=== PATIENT | female | born 1995 | race African-American/Black ===

== ENCOUNTER 2020-11-25 20:33 | Emergency (ER) | payer OTHER, SELFPAY ==
[2020-11-25 20:47] VITALS: BP 121/69; PULSE 81; RESP 18; TEMP 37.2; O2SAT 100
[2020-11-25] MEDS: ONDANSETRON 4 MG/2 ML INJ IV (22:29)
[2020-11-25] MEDS: SODIUM CHLORIDE 0.9% 1,000 ML 1000 ML IV (22:29)
[2020-11-25 22:44] LABS: Add Manual Diff / Slide Review NO; Basophils Absolute Auto 100 /uL (0-100); Basophils Percent Auto 0.4 % (0-2); Eosinophils Absolute Auto 100 /uL (0-450); Eosinophils Percent Auto 0.5 % (2-4); Hematocrit 33.7 % (36-46); Hemoglobin 10.5 g/dL (12.0-16.0); Lymphocytes Absolute Auto 3600 /uL (1100-4500); Lymphocytes Percent Auto 23.5 % (25-40); Mean Corpuscular HGB Conc 31.1 % (30-36); Mean Corpuscular Hemoglobin 22.9 PG (26-34); Mean Corpuscular Volume 73.4 fL (80-100); Monocytes Absolute Auto 900 /uL (0-900); Monocytes Percent Auto 6.1 % (3-14); Neutrophils Absolute Auto 10800 /uL (1500-7000); Neutrophils Percent Auto 69.5 % (50-75); Platelet Count 346 X10^3/uL (150-400); Red Blood Cell Count 4.59 X10^6/uL (4.0-5.2); Red Cell Distribution Width 16.3 % (11.6-14.8); White Blood Cell Count 15.5 X10^3/uL (4.5-11.0)
[2020-11-25 22:47] LABS: Alanine Aminotransferase 13 IU/L (<35); Albumin 3.9 g/dL (3.5-5.0); Albumin Globulin Ratio 1.2 (1.0-2.8); Alkaline Phosphatase 57 U/L (38-126); Aspartate Aminotransferase 19 IU/L (14-36); BUN Creatinine Ratio 14.3 (6-22); Bilirubin Total 0.2 mg/dL (0.2-1.3); Blood Urea Nitrogen 8 mg/dL (7-17); Calcium 8.5 mg/dL (8.4-10.2); Carbon Dioxide 24 mmol/L (22-32); Chloride 105 mmol/L (98-107); Estimated Glomerular Filt Rate > 60.0 mL/min (>60); Globulin 3.2 g/dL (1.7-4.1); Glucose 81 mg/dL (70-100); HEMOLYSIS 17 (0-50); Potassium 3.9 mmol/L (3.4-5.1); Sodium 135 mmol/L (137-145); Total Protein 7.1 g/dL (6.3-8.2)
[2020-11-25 22:53] LABS: Ketones (Beta-Hydroxybutyrate) < 0 mmol/L (<0.27)
[2020-11-25 23:40] VITALS: BP 134/76; PULSE 84; RESP 20; O2SAT 100
--- NOTE | 2020-11-26 02:38 | ED.NAVMDI ---
HPI - Nausea/Vomiting/Diarrhea General Chief complaint: Nausea/Vomiting/Diarrhea Stated complaint: 7 WKS NEEDS FLUIDS SENT BY DOCTOR Time Seen by Provider: 11/25/20 22:18 Source: patient Mode of arrival: Ambulatory History of Present Illness HPI Narrative: 25-year-old female nonsmoker without significant medical history is a at 7 weeks and presents with excessive N/V over the course of the past few days. She feels a bit parched and weak. She has had no fever or chills. She denies any pain. She has been taking Zofran at home which is not helping today. Her doctor sent her in for evaluation and stabilization of her condition. She denies any dysuria, frequency or urgency. She denies abdominal pain, constipation, diarrhea or vaginal bleeding, discharge or leakage of fluid. Related Data Previous Rx's Medication Instructions Recorded ondansetron 4 mg disintegrating 4 mg PO Q8H PRN #20 tab 11/20/20 tablet labetalol 100 mg tablet 100 mg PO BID #60 tab 11/22/20 Allergies Allergy/AdvReac Type Severity Reaction Status Date / Time No Known Drug Allergies Allergy Verified 11/25/20 20:49 Review of Systems Review of Systems Narrative: GENERAL: See HPI HEENT: Denies sinus pain, ear pain, sore throat, difficulty swallowing, dizziness. RESPIRATORY: Denies dyspnea, cough, wheezing, hemoptysis, sputum. CARDIOVASCULAR: Denies chest pain, palpitations, orthopnea, edema, GASTROINTESTINAL: See HPI : Denies dysuria, frequency, incontinence, hematuria, urinary retention. MUSCULOSKELETAL: denies weakness, joint pain, or bony pain SKIN: Denies rash, skin lesions, or other NEUROLOGIC: Denies weakness, headache, numbness, change in speech, confusion, seizures, incoordination. PSYCHIATRIC: No concerning psychosocial issues. 12 point review of systems is negative except for those stated above Exam Narrative Exam Narrative: GENERAL: [25] year old patient appears stated age. Well-developed patient, in mild distress. HEAD: Atraumatic. Normocephalic. EYES: Pupils equal round and reactive. Extraocular motions intact. No scleral icterus. No injection or drainage. ENT: Nose without bleeding, purulent drainage. Throat without erythema, tonsillar hypertrophy or exudate. Airway patent. NECK: Trachea midline. Non tender CARDIOVASCULAR: Regular rate and rhythm without murmurs, gallops, or rubs. RESPIRATORY: Clear to auscultation. Breath sounds equal bilaterally. No wheezes, rales, or rhonchi. GASTROINTESTINAL: Abdomen soft, non-tender, nondistended. EXTREMITIES: No edema or joint tenderness. BACK: Nontender without deformity or crepitance. No flank tenderness. NEURO: AOx3. SKIN: No rash or erythema of visible areas Initial Vital Signs Initial Vital Signs: Vital Signs Temperature 99.0 F 11/25/20 20:47 Pulse Rate 81 11/25/20 20:47 Respiratory Rate 18 11/25/20 20:47 Blood Pressure 121/69 11/25/20 20:47 Pulse Oximetry 100 11/25/20 20:47 Course Orders Ordered: ED Orders 11/25/20 22:27 Complete Blood Count AUTO DIFF Stat Comprehensive Metabolic Panel Stat Ketones (Beta-Hydroxybutyrate) Stat Discontinued Medications Sodium Chloride (Normal Saline 0.9%) 1,000 mls @ 1,000 mls/hr IV BOLUS ONE Stop: 11/25/20 23:17 Last Infusion: 11/25/20 23:35 Dose: 0 mls/hr Documented by: Admin: 11/25/20 22:29 Dose: 1,000 mls/hr Documented by: KUN Ondansetron HCl (Ondansetron 4 Mg/2 Ml Inj) 4 mg IV NOW ONE Stop: 11/25/20 22:19 Last Admin: 11/25/20 22:29 Dose: 4 mg Documented by: KUN Reevaluation(s) Reevaluation #1: Patient has significant improvement, but not complete after above-stated therapies. Vital Signs Vital signs: Vital Signs - 8 hr 11/25/20 20:47 11/25/20 23:40 Temperature 99.0 F Pulse Rate 81 84 Respiratory Rate 18 20 Blood Pressure 121/69 134/76 Pulse Oximetry 100 100 MDM - Nausea/Vomiting/Diarrhea Lab Data Result diagrams: 11/25/20 22:27 11/25/20 22:27 Labs: Lab Results 11/25/20 11/25/20 11/25/20 Range/Units 22:27 22:27 22:27 WBC 15.5 H (4.5-11.0) X10^3/uL RBC 4.59 (4.0-5.2) X10^6/uL Hgb 10.5 L (12.0-16.0) g/dL Hct 33.7 L (36-46) % MCV 73.4 L (80-100) fL MCH 22.9 L (26-34) PG MCHC 31.1 (30-36) % RDW 16.3 H (11.6-14.8) % Plt Count 346 (150-400) X10^3/uL Neut % (Auto) 69.5 (50-75) % Lymph % (Auto) 23.5 L (25-40) % [place] % (Auto) 6.1 (3-14) % Eos % (Auto) 0.5 L (2-4) % Baso % (Auto) 0.4 (0-2) % Neut # (Auto) 06115 H (8591-8429) /uL Lymph # (Auto) 3600 (6511-9305) /uL [place] # (Auto) 900 (0-900) /uL Eos # (Auto) 100 (0-450) /uL Baso # (Auto) 100 (0-100) /uL Sodium 135 L (137-145) mmol/L Potassium 3.9 (3.4-5.1) mmol/L Chloride 105 (98-107) mmol/L Carbon Dioxide 24 (22-32) mmol/L BUN 8 (7-17) mg/dL Creatinine 0.56 (0.52-1.04) mg/dL Estimated GFR > 60.0 (>60) mL/min BUN/Creatinine Ratio 14.3 (6-22) Glucose 81 (70-100) mg/dL Calcium 8.5 (8.4-10.2) mg/dL Total Bilirubin 0.2 (0.2-1.3) mg/dL AST 19 (14-36) IU/L ALT 13 (<35) IU/L Alkaline Phosphatase 57 (38-126) U/L Total Protein 7.1 (6.3-8.2) g/dL Albumin 3.9 (3.5-5.0) g/dL Globulin 3.2 (1.7-4.1) g/dL Albumin/Globulin Ratio 1.2 (1.0-2.8) Ketones < 0 (<0.27) mmol/L MDM Narrative Medical decision making narrative: Patient is a at 7 weeks with persistent nausea and vomiting. She has reassuring labs and physical exam. She is feeling better after above-stated therapies and tolerating oral hydration. Return precautions given and questions answered to her apparent satisfaction Discharge Plan Departure Patient Disposition: Home Clinical Impression: Vomiting affecting Instructions: DI for Hyperemesis Gravidarum Activity Restrictions/Additional Instructions: *You have been diagnosed with [vomiting with ] *What to do: *Please continue to take your regular medications as directed. [ ] New medication prescriptions sent to your pharmacy: [ ] [ ] New medication written as a paper prescription [x ] No new medications given *Please follow up with your primary care provider in 2-3 days, call for an appointment. Let them know you were seen in the Emergency Department and that we ask that you be seen in follow up. We will electronically transmit a record of today's note if your PCP is in our system *If you do not have a primary care provider please contact the [facility] Resource line at [phone]. They will ask some questions about your medical history and help get you set up with a doctor in the community. *Return to Emergency Department if you should have any new, worsening or concerning symptoms, such as [fever greater than 101 F, shaking chills, worsening pain, persistent vomiting or other bothersome symptoms] Prescriptions: No Action ondansetron 4 mg tablet,disintegrating 4 mg PO Q8H PRN (Reason: nausea and vomiting) Qty: 20 RF: 2 labetalol 100 mg tablet 100 mg PO BID Qty: 60 RF: 5
== END 2020-11-25 23:41 | disposition home or self-care (01) ==
PROVIDERS: Emergency Provider Emergency Medicine
DX: O21.9 Vomiting of pregnancy, unspecified (principal); Z3A.01 Less than 8 weeks gestation of pregnancy
CPT/HCPCS: 36415; 80053; 82009; 85025; 96361; 96374; 99284; J2405

== ENCOUNTER → 2021-01-13 11:26 | Outpatient (CLI) | payer OTHER, SELFPAY ==
[2021-01-13 12:17] LABS: Add Manual Diff / Slide Review NO; Basophils Absolute Auto 0 /uL (0-100); Basophils Percent Auto 0.1 % (0-2); Eosinophils Absolute Auto 0 /uL (0-450); Eosinophils Percent Auto 0.4 % (2-4); Hematocrit 31.8 % (36-46); Hemoglobin 10.1 g/dL (12.0-16.0); Lymphocytes Absolute Auto 2100 /uL (1100-4500); Lymphocytes Percent Auto 18.9 % (25-40); Mean Corpuscular HGB Conc 31.8 % (30-36); Mean Corpuscular Volume 72.4 fL (80-100); Monocytes Absolute Auto 900 /uL (0-900); Monocytes Percent Auto 7.6 % (3-14); Neutrophils Absolute Auto 8200 /uL (1500-7000); Platelet Count 328 X10^3/uL (150-400); Red Blood Cell Count 4.39 X10^6/uL (4.0-5.2); Red Cell Distribution Width 18.1 % (11.6-14.8); White Blood Cell Count 11.3 X10^3/uL (4.5-11.0)
[2021-01-13 12:31] LABS: Hemoglobin A1C% w Est Avg Glu 5.4 % (4.0-6.0)
[2021-01-13 12:47] LABS: Alanine Aminotransferase 13 IU/L (<35); Aspartate Aminotransferase 17 IU/L (14-36); BUN Creatinine Ratio 9.8 (6-22); Blood Urea Nitrogen 4 mg/dL (7-17); Estimated Glomerular Filt Rate > 60.0 mL/min (>60); Glucose 90 mg/dL (70-100); Uric Acid 3.4 mg/dL (2.5-6.2)
[2021-01-13 16:24] LABS: Hepatitis B Surface Antigen NEGATIVE s/c (NEGATIVE); Rubella Antibody IgG 95.5 IU/mL (>15)
[2021-01-13 16:42] LABS: HIV 1 & 2 Ab/Ag 4th Gen Combo NEGATIVE (NEGATIVE); Hep C Virus Ab w/Reflex Quant NEGATIVE s/c (NEGATIVE)
[2021-01-14 08:13] LABS: RPR Screen Non Reactive (Non Reactive)
[2021-01-14 14:19] LABS: Varicella IgG Antibody 548 index (Immune >165)
== END ==
PROVIDERS: Referring Provider Obstetrics & Gynecology; Visit Provider Obstetrics & Gynecology
DX: O16.9 Unspecified maternal hypertension, unspecified trimester (principal); O30.001 Twin pregnancy, unspecified number of placenta and unspecified number of amniotic sacs, first trimester; Z87.898 Personal history of other specified conditions
CPT/HCPCS: 36415; 80055; 82565; 82947; 83036; 84450; 84460; 84520; 84550; 86787; 86803; 86850; 86900; 86901; 87389

== ENCOUNTER → 2021-02-10 16:12 | Outpatient (CLI) | payer OTHER, SELFPAY ==
[2021-02-10 17:41] LABS: Creatinine Urine Random 306.3 mg/dL
[2021-02-10 17:43] LABS: Appearance Urine UA CLEAR; Bilirubin Urine UA NEGATIVE (NEGATIVE); Color Urine UA YELLOW; Glucose Urine UA NEGATIVE (Negative); Ketones Urine UA TRACE (NEGATIVE); Leukocyte Esterase Urine UA NEGATIVE (NEGATIVE); Nitrite Urine UA NEGATIVE (Negative); Occult Blood Urine UA NEGATIVE (Negative); Protein Urine UA TRACE (Negative); Specific Gravity Urine UA >=1.030 (1.000-1.035); Urobilinogen Urine UA 0.2 E.U./dL (0.2)
[2021-02-10 17:53] LABS: Protein (Total) Urine Random < 5 mg/dL (0-12); Protein Creatinine Ratio Urine 0.01 GRAM/24H
[2021-02-12 19:43] LABS: AFP, Serum 49.4 ng/mL (.); Estriol, Free 1.92 ng/mL (.); Inhibin A, Dimeric 241.01 pg/mL (.); Inhibin A, MoM 2.04 (.); Maternal Ethnicity Other (.); Maternal Weight 261 lbs (.); Number of Fetuses Twins (.); OSBR Risk 1 IN 5493 (.); Results Report (.); Test Results *Screen Negative* (.); hCG, MoM 2.15 (.); hCG, Serum 43071 mIU/mL (.)
== END ==
PROVIDERS: Referring Provider Obstetrics & Gynecology; Visit Provider Obstetrics & Gynecology
DX: O30.002 Twin pregnancy, unspecified number of placenta and unspecified number of amniotic sacs, second trimester (principal); O30.049 Twin pregnancy, dichorionic/diamniotic, unspecified trimester; Z36.0 Encounter for antenatal screening for chromosomal anomalies; Z3A.18 18 weeks gestation of pregnancy; O16.9 Unspecified maternal hypertension, unspecified trimester; O30.001 Twin pregnancy, unspecified number of placenta and unspecified number of amniotic sacs, first trimester
CPT/HCPCS: 36415; 81003; 82105; 82570; 82677; 84156; 84702; 86336; 87086

== ENCOUNTER → 2021-02-24 11:36 | Outpatient (CLI) | payer OTHER, SELFPAY ==
--- NOTE | 2021-02-24 11:37 | DI.US.S_ITS ---
PROCEDURE: US OB >= 14 WK FETUS ADD GEST INDICATIONS: ANATOMY SCAN OUTSIDE/PRIOR DATING DATA: Last menstrual period (LMP): 10/05/2020. LMP-based estimated date of delivery (ROSANNA): 07/12/2021. First dating scan (date and location): 12/12/2020. Estimated date of delivery (ROSANNA) from first dating scan: 07/17/2021. TECHNIQUE: Real-time scanning was performed of the fetuses, with image documentation and biometric measurements. COMPARISON: [facility], , OB >= 14 WEEKS FETUS, 02/10/2021, 16:08. FINDINGS: General: An intrauterine dichorionic-diamniotic twin is present, as evidenced by separate placentas, differing sexes, or an intervening membrane of greater than 2 mm. Composite amniotic fluid index: Within normal limits. Maternal cervical canal: 5.7 cm long. Normal lower limit is 2.5 cm. FETUS A: Fetus is in variable presentation. Largest amniotic fluid pocket: 5.3 cm, normal is 2-8 cm. Placental position is anterior, without previa. heart rate: 144 beats per minute. biometrics: Biparietal diameter: 4.7 cm, 20 weeks, 1 day Head circumference: 16.9 cm, 19 weeks, 4 days Abdominal circumference: 13.9 cm, 19 weeks 2 days Femur length: 3.1 cm, 19 weeks, 4 days Estimated gestational age from initial scan: 19 weeks, 4 days Composite gestational age from present scan: 19 weeks, 5 days Estimated weight and percentile: 294 grams, 39 percent Measurement variability for biometric dating: +/- 7 days from 14 weeks to 15 weeks 6 days gestation, +/- 10 days from 16 weeks to 21 weeks 6 days gestation, +/- 2 weeks from 22 weeks to 27 weeks 6 days gestation, +/- 3 weeks for 28 weeks gestation or later. weight reference: 4500 g or EFW >90/95% is considered macrosomia or large for gestational age. EFW <10% is small for gestational age. EFW 5% or less is considered intra-uterine growth restriction. ventricles, choroid plexus and cerebellum are within normal limits. facial profile is within normal limits. Neck soft tissue is not well seen. spine, four-chamber heart, outflow tracts, chest, stomach, bilateral kidneys, placental cord insertion, urinary bladder, and bilateral upper and lower extremities are within normal limits. FETUS B: Fetus is in variable presentation. Largest amniotic fluid pocket: 6.7 cm, normal is 2-8 cm. Placental position is anterior, without previa. heart rate: 145 beats per minute. biometrics: Biparietal diameter: 4.7 cm, 20 weeks, 1 day Head circumference: 17.3 cm, 19 weeks 6 days Abdominal circumference: 14.5 cm, 19 weeks, 6 days Femur length: 3.9 cm, 20 weeks, 5 days Estimated gestational age from initial scan: 19 weeks, 4 days Composite gestational age from present scan: 20 weeks, 1 day Estimated weight and percentile: 336 grams, 79 percent Measurement variability for biometric dating: +/- 7 days from 14 weeks to 15 weeks 6 days gestation, +/- 10 days from 16 weeks to 21 weeks 6 days gestation, +/- 2 weeks from 22 weeks to 27 weeks 6 days gestation, +/- 3 weeks for 28 weeks gestation or later. weight reference: 4500 g or EFW >90/95% is considered macrosomia or large for gestational age. EFW <10% is small for gestational age. EFW 5% or less is considered intra-uterine growth restriction. ventricles, choroid plexus and cerebellum are within normal limits. facial profile is not well seen on this study. Neck soft tissue is normal in thickness. spine, four-chamber heart, chest, stomach, placental cord insertion, urinary bladder, and bilateral upper and lower extremities are within normal limits. Outflow tracts, and bilateral kidneys are not well seen. IMPRESSION: 1. Twin live intrauterine as described in detail above. 2. Normal growth. Normal amount of amniotic fluid. 3. Suboptimal evaluation of fetus a neck soft tissue thickness. Suboptimal evaluation of fetus B outflow tract, facial profile, and bilateral kidneys due to positions. Dictated by: Estrada Gould M.D. on 02/24/2021 at 15:00 Approved by: Estrada Gould M.D. on 02/24/2021 at 15:08
== END ==
PROVIDERS: Referring Provider Obstetrics & Gynecology; Visit Provider Obstetrics & Gynecology
DX: O30.042 Twin pregnancy, dichorionic/diamniotic, second trimester (principal); Z3A.19 19 weeks gestation of pregnancy
CPT/HCPCS: 76811; 76812

== ENCOUNTER → 2021-03-11 17:45 | Outpatient (ROUT) | payer OTHER, SELFPAY ==
[2021-03-11 19:17] LABS: Urine N gonorrhoeae NOT DETECTED
[2021-03-11 19:25] LABS: Urine Chlamydia NOT DETECTED
== END ==
PROVIDERS: Visit Provider Obstetrics & Gynecology
DX: Z34.82 Encounter for supervision of other normal pregnancy, second trimester (principal); Z3A.22 22 weeks gestation of pregnancy
CPT/HCPCS: 87491; 87591

== ENCOUNTER 2021-04-05 21:39 | Outpatient (CLI) | payer OTHER, SELFPAY | END 2021-04-05 22:51 | disposition home or self-care (01) | LOC: OB 04-08 14:22 | PROVIDERS: PCP Obstetrics & Gynecology; Referring Provider Family Medicine; Visit Provider Family Medicine | DX: O30.002 Twin pregnancy, unspecified number of placenta and unspecified number of amniotic sacs, second trimester (principal); R10.2 Pelvic and perineal pain; O26.892 Other specified pregnancy related conditions, second trimester; Z3A.26 26 weeks gestation of pregnancy | CPT/HCPCS: 59025; G0378; G0379 ==

== ENCOUNTER 2021-04-21 15:15 | Outpatient (CLI) | payer OTHER, SELFPAY | END 2021-04-21 16:42 | disposition home or self-care (01) | LOC: LABOR 15:18 → OB 04-22 10:32 | PROVIDERS: PCP Obstetrics & Gynecology; Referring Provider Obstetrics & Gynecology; Visit Provider Obstetrics & Gynecology | DX: O30.003 Twin pregnancy, unspecified number of placenta and unspecified number of amniotic sacs, third trimester (principal); O36.8130 Decreased fetal movements, third trimester, not applicable or unspecified; O26.893 Other specified pregnancy related conditions, third trimester; N89.8 Other specified noninflammatory disorders of vagina; Z3A.28 28 weeks gestation of pregnancy | CPT/HCPCS: 59025; G0378; G0379 ==

== ENCOUNTER → 2021-04-23 13:01 | Outpatient (CLI) | payer OTHER, SELFPAY ==
--- NOTE | 2021-04-23 13:02 | DI.US.S_ITS ---
PROCEDURE: US OB FOLLOW UP INDICATIONS: FOLLOW UP TWIN ANATOMY OUTSIDE/PRIOR DATING DATA: Last menstrual period (LMP): October 05, 2020. LMP-based estimated date of delivery (ROSANNA): July 13, 2019. First dating scan (date): December 12, 2020. Estimated date of delivery (ROSANNA) from first dating scan: July 17, 2021. TECHNIQUE: Real-time scanning was performed of the fetuses, with image documentation and biometric measurements. COMPARISON: [facility], US, OB >= 14 WEEKS FETUS, 04/09/2021, 16:58. FINDINGS: Patient refused the transvaginal portion of the examination. General: An intrauterine dichorionic-diamniotic twin is present, as evidenced by separate placentas, differing sexes, or an intervening membrane of greater than 2 mm. Maternal cervical canal: Not well visualized FETUS A: Fetus is located on the maternal left side, and is in transverse presentation. Largest amniotic fluid pocket: 5.9 cm, normal is 2-8 cm. Placental position is anterior, without previa. heart rate: 152 beats per minute. Facial profile: Nose/lips normal. Orbits not well seen. FETUS B: Fetus is located on the maternal maternal right side, and is in breech presentation. Largest amniotic fluid pocket: 4.6 cm, normal is 2-8 cm. Placental position is anterior, without previa. heart rate: 158 beats per minute. Facial profile: Normal Outflow tract: Normal Kidneys: Normal IMPRESSION: Twin intrauterine gestation as detailed above. We strive to produce accurate, complete, and clear reports of imaging services. To assist us in improving patient care, this report was composed using standard report templates and voice recognition software. Therefore, it may contain abnormal punctuation, insertions and/or omissions. Occasional wrong-word or sound-alike substitutions may occur. Though we review the report and make efforts to correct it, we do recommend that the report be read carefully in proper context to recognize any text inaccuracies. Dictated by: Dion Ceron M.D. on 04/23/2021 at 15:35 Approved by: Dion Ceron M.D. on 04/23/2021 at 15:41
[2021-04-23 15:20] LABS: Hemoglobin 7.9 g/dL (12.0-16.0)
[2021-04-23 15:58] LABS: GTT (PREG) 1 Hour PP 50gm Dose 106 mg/dL (76-139)
== END ==
PROVIDERS: PCP Obstetrics & Gynecology; Referring Provider Obstetrics & Gynecology; Visit Provider Obstetrics & Gynecology
DX: Z36.2 Encounter for other antenatal screening follow-up (principal); O30.042 Twin pregnancy, dichorionic/diamniotic, second trimester; Z3A.25 25 weeks gestation of pregnancy
CPT/HCPCS: 36415; 76812; 76816; 82950; 85014; 85018

== ENCOUNTER 2021-05-01 17:36 | Outpatient (CLI) | payer OTHER, SELFPAY ==
[2021-05-01 18:38] LABS: Add Manual Diff / Slide Review NO; Basophils Absolute Auto 0 /uL (0-100); Basophils Percent Auto 0.3 % (0-2); Eosinophils Absolute Auto 0 /uL (0-450); Eosinophils Percent Auto 0.2 % (2-4); Hematocrit 25.8 % (36-46); Hemoglobin 8.1 g/dL (12.0-16.0); Lymphocytes Absolute Auto 1800 /uL (1100-4500); Lymphocytes Percent Auto 26.4 % (25-40); Mean Corpuscular HGB Conc 31.5 % (30-36); Mean Corpuscular Hemoglobin 20.3 PG (26-34); Mean Corpuscular Volume 64.6 fL (80-100); Monocytes Absolute Auto 800 /uL (0-900); Monocytes Percent Auto 12.6 % (3-14); Neutrophils Absolute Auto 4000 /uL (1500-7000); Neutrophils Percent Auto 60.5 % (50-75); Platelet Count 260 X10^3/uL (150-400); Red Blood Cell Count 3.99 X10^6/uL (4.0-5.2); Red Cell Distribution Width 18.2 % (11.6-14.8); White Blood Cell Count 6.7 X10^3/uL (4.5-11.0)
[2021-05-01 18:43] LABS: Aspartate Aminotransferase 26 IU/L (14-36); BUN Creatinine Ratio 9.8 (6-22); Blood Urea Nitrogen 4 mg/dL (7-17); Estimated Glomerular Filt Rate > 60.0 mL/min (>60); Uric Acid 4.2 mg/dL (2.5-6.2)
[2021-05-01 18:51] LABS: Protein (Total) Urine Random 19 mg/dL (0-12)
[2021-05-01 19:21] LABS: Polychromasia 1+
[2021-05-01 19:22] LABS: Hypochromasia 1+; Microcytosis 2+
[2021-05-02 17:07] LABS: Protein (Total) Urine Random 17 mg/dL (0-12)
[2021-05-02 17:23] LABS: Creatinine Urine Random 350.2 mg/dL; Protein Creatinine Ratio Urine 0.04 GRAM/24H
== END 2021-05-01 18:55 | disposition home or self-care (01) ==
LOC: OB 05-02 09:35
PROVIDERS: Obstetrics & Gynecology; PCP Obstetrics & Gynecology; Referring Provider Obstetrics & Gynecology; Visit Provider Obstetrics & Gynecology
DX: O13.3 Gestational [pregnancy-induced] hypertension without significant proteinuria, third trimester (principal); O30.003 Twin pregnancy, unspecified number of placenta and unspecified number of amniotic sacs, third trimester; Z3A.29 29 weeks gestation of pregnancy
CPT/HCPCS: 36415; 59025; 59050; 82570; 84156; 84450; 84550; 85025; G0378; G0379

== ENCOUNTER 2021-06-07 00:31 | Outpatient (CLI) | payer OTHER, SELFPAY ==
--- NOTE | 2021-06-07 10:13 | P.TNLD_ITS ---
Visit Information Visit Information Date of evaluation: 06/07/21 Primary OB Provider: Meenakshi Mccullough On-call OB Provider: Karrie Diez Reason for Evaluation: Yes pre-term labor Vital Signs Vital Signs: blood pressure 142/83 temperature 95.7? pulse 105 PFSH Medical History (Updated 06/07/21 @ 10:17 by Karrie Diez MD) Anemia Bipolar affective disorder Heavy menstrual period Hemorrhage, immediate Herpes (~07/2020) Hip fracture, left History of prediabetes Hyperemesis gravidarum (~11/2020) Obesity Slipped epiphysis (spontaneous vaginal delivery) (~10/05/17) (spontaneous vaginal delivery) (~03/06/19) Thalassemia Twin (~11/20/20) Surgical History (Updated 12/11/20 @ 11:29 by Elva Peralta, RN) Anesthesia History of hip surgery [place] teeth extracted (~2014) Family History (Updated 12/11/20 @ 10:45 by Elva Peralta, RN) Grandmother Cancer Diabetes mellitus Hypertension Grandfather Cancer Skin cancer Family estrangement Father MVA (motor vehicle accident) Grandfather Family estrangement Grandmother Arthritis Mother Bipolar 1 disorder History of ETOH abuse Drug addiction in remission History of incarceration Brother No problems noted. Sister No problems noted. Social History marital status: number of children: 2 household members: spouse and children caregiver/support person: No pets and animals: No education level: high school occupational status: unemployed current occupational exposures/hazards: No geoffrey/mormon: [employer] special geoffrey needs: No Smoking Status: Former smoker Tobacco: How many years used: 2 Smokeless tobacco user: dissolvable tobacco quit status: quit date established second hand exposure: No alcohol intake: former substance use type: does not use Review of Systems Review of Systems Narrative: patient has been having longstanding nausea and vomiting but today developed diarrhea. she felt as if her Leonard Wong contractions were changing to be more painful with more pelvic pressure, no leakage of fluid. No headaches, scotomata, epigastric pain. Evaluation Evaluation Baseline heart rate: 135 ( Both) Variability: Moderate (11-25) ( both) monitor accelerations: Present ( both) Monitor Decelerations: Absent ( both) Contraction Frequency (minutes): 13 Uterine Contraction Intensity: Mild Category of Tracing: Reactive ( both) Status: Category l ( both) Diagnosis, Plan/Disposition Final Diagnosis (1) Dichorionic diamniotic twin gestation: Status: Acute (2) 35 weeks gestation of : Status: Acute (3) Mario Wong contractions: Status: Acute Plan/Disposition Plan: Patient came in with increasing discomfort with her Mario Wong contractions and diarrhea as well as nausea vomiting. Patient does not appear to be dehydrated. Contractions are very infrequent and palpate mild. Patient reassured and discharged home to be followed up at her routine OB appointment. No signs or symptoms of preeclampsia at this time. OB Disposition: home
== END 2021-06-07 01:19 | disposition home or self-care (01) ==
LOC: LABOR 00:33 → OB 06-10 12:38
PROVIDERS: PCP Obstetrics & Gynecology; Referring Provider Specialist; Visit Provider Specialist
DX: O30.043 Twin pregnancy, dichorionic/diamniotic, third trimester (principal); O47.03 False labor before 37 completed weeks of gestation, third trimester; Z3A.35 35 weeks gestation of pregnancy
CPT/HCPCS: 59025; G0378; G0379

== ENCOUNTER 2021-06-10 21:42 | Observation (INO) | payer OTHER, SELFPAY | END 2021-06-11 01:19 | disposition home or self-care (01) | LOC: LABOR 21:44 | PROVIDERS: Admitting Provider Obstetrics & Gynecology; PCP Obstetrics & Gynecology; Referring Provider Obstetrics & Gynecology; Visit Provider Obstetrics & Gynecology | DX: O30.003 Twin pregnancy, unspecified number of placenta and unspecified number of amniotic sacs, third trimester (principal); O47.03 False labor before 37 completed weeks of gestation, third trimester; Z3A.35 35 weeks gestation of pregnancy | CPT/HCPCS: 59025; 59050; G0378; G0379 ==

== ENCOUNTER → 2021-06-16 10:31 | Outpatient (CLI) | payer OTHER, SELFPAY ==
[2021-06-17 07:37] LABS: Strep Grp B PCR NEG for Grp B Strep
== END ==
PROVIDERS: PCP Obstetrics & Gynecology; Referring Provider Obstetrics & Gynecology; Visit Provider Obstetrics & Gynecology
DX: Z36.85 Encounter for antenatal screening for Streptococcus B (principal); Z3A.36 36 weeks gestation of pregnancy
CPT/HCPCS: 87653

== ENCOUNTER → 2021-06-24 13:56 | Outpatient (CLI) | payer OTHER, SELFPAY ==
[2021-06-24 16:25] LABS: COVID19 -Nasal RAPID Negative (Negative)
== END ==
PROVIDERS: PCP Obstetrics & Gynecology; Visit Provider Obstetrics & Gynecology
DX: Z01.812 Encounter for preprocedural laboratory examination (principal); Z20.822 Contact with and (suspected) exposure to COVID-19
CPT/HCPCS: 87635

== ENCOUNTER 2021-06-26 21:58 | Inpatient (IN) | payer OTHER, SELFPAY ==
[2021-06-26 22:58] LABS: Basophils Absolute Auto 0 /uL (0-100); Basophils Percent Auto 0.2 % (0-2); Eosinophils Absolute Auto 100 /uL (0-450); Eosinophils Percent Auto 0.6 % (2-4); Hematocrit 31.6 % (36-46); Hemoglobin 9.9 g/dL (12.0-16.0); Lymphocytes Absolute Auto 2200 /uL (1100-4500); Lymphocytes Percent Auto 24.4 % (25-40); Mean Corpuscular HGB Conc 31.5 % (30-36); Mean Corpuscular Volume 69.9 fL (80-100); Monocytes Absolute Auto 800 /uL (0-900); Monocytes Percent Auto 9.2 % (3-14); Neutrophils Absolute Auto 6000 /uL (1500-7000); Neutrophils Percent Auto 65.6 % (50-75); Platelet Count 325 X10^3/uL (150-400); Red Blood Cell Count 4.52 X10^6/uL (4.0-5.2); Red Cell Distribution Width 27.4 % (11.6-14.8); White Blood Cell Count 9.1 X10^3/uL (4.5-11.0)
[2021-06-26] MEDS: DINOPROSTONE VAG (CERVIDIL) 10 MG VAG (23:10)
[2021-06-26 23:26] LABS: Add Manual Diff / Slide Review SLIDE REVIEW
[2021-06-27 03:21] VITALS: BP 131/76
[2021-06-27 03:55] LABS: Anisocytosis 3+; Dimorphic RBC PRESENT; Hypochromasia 1+; Microcytosis 1+; Schistocytes 1+; Tear Drop Cells 1+
[2021-06-27] MEDS: LACTATED RINGERS 1,000 ML 100 ML IV (07:12)
[2021-06-27] MEDS: FENT 2MCG/ML BUPIV 0.125% EPI 200 MCG/100 ML PLAST..BAG 10 MCG EPIDURAL (08:28)
[2021-06-27] MEDS: ONDANSETRON 4 MG/2 ML INJ IV (09:48)
[2021-06-27] MEDS: OXYTOCIN PREMIX 30 UNIT/500 ML PLAST..BAG IV (09:48)
--- NOTE | 2021-06-27 11:44 | P.HPOB_ITS ---
OB HPI Date/Time Date of admission: 06/26/21 Date Patient Seen: 06/27/21 Time Patient Seen: 11:15 History of Present Condition Chief complaint: observation of labor ROSANNA Calculator Estimated Delivery Date Method Current WG Current Estimate 07/12/21 LMP (Certain) 37w 6d Other Estimates 07/17/21 Ultrasound #1 37w 1d # 2 Estimated Gestational Age (weeks): 38 : 3 Para: 2 care: good care, initiated at week # (9), number of visits (11) and pounds weight gain (66) Dating criteria OB: LMP confirmed by 1st trimester US Ultrasounds: normal 1st trimester US and normal mid trimester US Obstetrical complications: other (Twins) Medical complications OB: psychiatric Indications Indication for induction OB: other (Twins) Preadmission Labs Last OB Lab Results: Blood Type O Positive 06/26/21 22:30 06/26/21 Antibody Screen Negative 06/26/21 22:30 06/26/21 Hematocrit 31.6 % (36-46) L 06/26/21 22:30 06/26/21 Hemoglobin 9.9 g/dL (12.0-16.0) L 06/26/21 22:30 06/26/21 Hepatitis B Surface Antigen Negative s/c (NEGATIVE) 01/13/21 11:31 01/13/21 Hepatitis C Antibody Negative s/c (NEGATIVE) 01/13/21 11:31 01/13/21 Rubella Antibody 95.5 IU/mL (>15) 01/13/21 11:31 01/13/21 Varicella-Zoster IgG Antibody 548 index (Immune >165) 01/13/21 11:31 01/13/21 Glucose 1 Hour 106 mg/dL (76-139) 04/23/21 15:04 04/23/21 Group B Streptococcus (PCR) Neg for grp b strep 06/16/21 10:31 06/16/21 -: Chlamydia screen: negative, Gonorrhea screen: negative and Urine: negative -: PAP smear: Normal Genetic Screens: Quad screen: Normal External Labs -: Urine: negative Prior (ies) Past Pregnancies Del. Date GA/Weeks Labor Lgth Wt Sex Route Outcome Anesthesia Place Delv Breastfeed Preg Comp Name 10/05/17 40.2 30 7 lb 4 oz Female vaginal live - full ter m epidural [place] 1 month : attempted induced hyper- hemorrhage Black 03/06/19 38 30 6 lb 2 oz Female vaginal live - full ter m epidural [place] 15 months induced hyper- hemorrhage Mae Delivery Date: 10/05/17 Last Updated by: Elva Peralta R.N. *Induction. *Severe PPD : Therapy and Medication. Delivery Date: 03/06/19 Last Updated by: Elva Peralta R.N. *Induction. *PPD : back into Therapy, was put on Anxiety Rx. But better this time around. Evaluation Evaluation Baseline heart rate: 135 Variability: Moderate (11-25) monitor accelerations: Present Monitor Decelerations: Absent Contraction Frequency (minutes): 4 Uterine Contraction Intensity: Moderate Status: Category l (x2) Dilation (cm): 5 Effacement (%): 95 station: -1 Position of cervix: posterior Consistency: soft [facility] Medical History (Updated 06/16/21 @ 09:31 by Ramandeep Gooden DO) Anemia Bipolar affective disorder Heavy menstrual period Hemorrhage, immediate Herpes (~07/2020) Hip fracture, left History of prediabetes Hyperemesis gravidarum (~11/2020) Obesity Slipped epiphysis (spontaneous vaginal delivery) (~10/05/17) (spontaneous vaginal delivery) (~03/06/19) Thalassemia Twin (~11/20/20) Surgical History (Updated 12/11/20 @ 11:29 by Elva Peralta RN) Anesthesia History of hip surgery [place] teeth extracted (~2014) Family History (Updated 12/11/20 @ 10:45 by Elva Peralta RN) Grandmother Cancer Diabetes mellitus Hypertension Grandfather Cancer Skin cancer Family estrangement Father MVA (motor vehicle accident) Grandfather Family estrangement Grandmother Arthritis Mother Bipolar 1 disorder History of ETOH abuse Drug addiction in remission History of incarceration Brother No problems noted. Sister No problems noted. Social History marital status: number of children: 2 household members: spouse and children caregiver/support person: No pets and animals: No education level: high school occupational status: unemployed current occupational exposures/hazards: No geoffrey/mosque: Yazidi special geoffrey needs: No Smoking Status: Former smoker Tobacco: How many years used: 2 Smokeless tobacco user: dissolvable tobacco quit status: quit date established second hand exposure: No alcohol intake: former substance use type: does not use Meds Home Medications and Allergies Home Medications Medication Instructions Recorded Confirmed Type prenat.vits,princess,ork-ebfc-ysgkr 1 tab PO DAILY 12/11/20 06/26/21 History hydroxyzine HCl 25 mg tablet 25 mg PO QID PRN #30 tab 04/09/21 06/26/21 Rx escitalopram oxalate 10 mg tablet 10 mg PO DAILY #45 tab 05/22/21 06/26/21 Rx (Lexapro) metoclopramide HCl 10 mg tablet 10 mg PO Q8H PRN #30 tab 05/22/21 06/26/21 Rx (Reglan) labetalol 100 mg tablet 200 mg PO BID 06/07/21 06/26/21 History acyclovir 400 mg tablet 400 mg PO TID PRN #60 tab 06/19/21 06/26/21 Rx Allergies Allergy/AdvReac Type Severity Reaction Status Date / Time oxycodone AdvReac Verified 06/24/21 13:51 OB Exam Narrative Exam Narrative: Generally: Patient comfortable with epidural. Lungs: Clear to auscultation bilaterally Cardiovascular: Regular rate and rhythm Fundal height: 49 cm Estimated weight: Both babies in the 6 1/2 lb range Extremities: 1+ edema, 1+ DTRs Objective Labs Result Diagrams: 06/26/21 22:30 Labs: Laboratory Results - last 24 hr 06/26/21 06/26/21 22:30 22:30 WBC 9.1 RBC 4.52 Hgb 9.9 L Hct 31.6 L MCV 69.9 L MCH 22.0 L MCHC 31.5 RDW 27.4 H Plt Count 325 Neut % (Auto) 65.6 Lymph % (Auto) 24.4 L [place] % (Auto) 9.2 Eos % (Auto) 0.6 L Baso % (Auto) 0.2 Neut # (Auto) 6000 Lymph # (Auto) 2200 [place] # (Auto) 800 Eos # (Auto) 100 Baso # (Auto) 0 RBC Morphology See below Dimorphic RBCs Present Hypochromasia 1+ H Anisocytosis 3+ H Microcytosis 1+ H Tear Drop Cells 1+ H Schistocytes 1+ H Blood Type O Positive Antibody Screen Negative Assessment and Plan Assessment and Plan Assessment and Plan narrative: Assessment: 25-year-old 3 para 2 at an estimated gestational age of 38 weeks g estation with dichorionic/diamniotic twins Baby A is in the vertex presentation. Baby B is in the vertex presentation Status post Cervidil last evening Active labor GBS negative Plan: Artificial rupture membranes of sac A with copious clear amniotic fluid Expected management to spontaneous vaginal delivery x 2 Pediatrics notified Time Spent with Patient Total time spent with greater than 50% in coordination of care (as documented) at patient's floor/unit and/or counseling patient:: 15-24 minutes
[2021-06-27] MEDS: CALCIUM CARBONATE 500 MG TAB 1000 MG PO (12:28)
[2021-06-27] MEDS: FENT 2MCG/ML BUPIV 0.125% EPI 200 MCG/100 ML PLAST..BAG 13 MCG EPIDURAL (13:39)
--- NOTE | 2021-06-27 14:27 | PM.OBPNLAB ---
Date/Time Date Patient Seen: 06/27/21 Time Patient Seen: 14:27 Pain Control Pain control: tolerating well and epidural (Patient more uncomfortable) Pelvic Exam Dilation (cm): 10 Effacement (%): 100 station: +1 Amniotic membrane status: Ruptured Contractions Monitor mode: External Pitocin rate (mU/min): 5 Contraction frequency (min): 3 Contraction duration (min): 1 Contraction pattern: Regular Contraction intensity: Moderate Status status: Category l (x2) Heart Rate Baseline: 135 Monitor Accelerations: Present Monitor Decelerations: Absent Monitor Variability: Moderate Assessment and Plan Assessment: active labor Comments: Epidural bolus Begin pushing Peds notified
--- NOTE | 2021-06-27 15:31 | PM.OBPRVD ---
Events: Labor Induction and Multiple gestation (Twins) Labor & Delivery Delivery date: 06/27/21 Cervical ripening method: per Cervidil protocol Induction method: per pitocin protocol Delivery augmentation: rupture of membranes Delivery monitor: external FHT and external uterine Route of delivery: (x2) Episiotomy description: None L&D Laceration Description: None Estimated blood loss (mL): 100 Anesthesia Type: Epidural Complications: None Narrative: Patient complete and pushed for 24 minutes. At 2:54 p.m., a live female delivered spontaneously in the direct OA presentation after turning from direct OPP. No nuchal cord. The remainder of the body delivered without difficulty and was placed on mom's abdomen. There was a very thick but short cord. The cord was double clamped and cut after 1 minute. The infant was moved to mom's chest. Cord bloods were obtained and the cord was tagged with 1 cord clamp. An ultrasound was performed which revealed baby B in the vertex presentation. Artificial rupture of membranes was performed with copious clear amniotic fluid. She pushed once and baby B delivered over an intact perineum in the direct OA presentation. at 3:02 p.m.. The remainder of the body delivered without difficulty and was placed on mom's abdomen. The cord was double clamped and cut after 1 minute. Cord bloods were obtained for baby B. the cord was marked with 2 cord clamps. Pitocin was given in the IV fluids. The placenta delivered intact with three-vessel cords x2 at 3:13 p.m.. The fundus was massaged to firm. There were no lacerations noted. Estimated blood loss 100 cc. Baby A 6 lb 5 oz. Apgars 8 at 1 minute and 9 at 5 minutes. Baby B 6 lb. Apgars 8 at 1 minute and 9 at 5 minutes. . Epidural analgesia. Mom and both babies stable to recovery. Baby 1: gender: Female Presentation: vertex Position: Right Occiput Anterior Cord Vessel Description: 3 Vessels and Clamped/Cut (after 1 minute) score (1 min): 8 score (5 min): 9 weight: 6 lb 5 oz 2: gender: Male Presentation: vertex Position: Left Occiput Anterior Placenta delivery description: Spontaneous (x2) Cord Vessel Description: Clamped/Cut (after 1 minute) score (1 min): 8 score (5 min): 9 weight: 6 lb Plan for aftercare: Routine care
[2021-06-27] MEDS: ACETAMINOPHEN 325 MG TABLET 650 MG PO (19:02)
[2021-06-27] MEDS: IBUPROFEN 600 MG TABLET PO (19:02)
[2021-06-27] MEDS: LANOLIN OINT 7 GM 1 APPLIC TOP (21:04)
[2021-06-27 21:52] VITALS: BP 153/62; PULSE 82
[2021-06-27] MEDS: LABETALOL 100 MG TABLET 200 MG PO (21:52)
[2021-06-28] MEDS: IBUPROFEN 600 MG TABLET PO ×2 (01:35→07:33)
[2021-06-28] MEDS: ACETAMINOPHEN 325 MG TABLET 650 MG PO (01:35)
[2021-06-28] MEDS: HYDROCODONE/ACET 5/325 TABLET 1 TAB PO (06:12)
[2021-06-28 06:47] LABS: Hematocrit 27.7 % (36-46); Hemoglobin 8.5 g/dL (12.0-16.0)
[2021-06-28 08:40] VITALS: BP 141/67; PULSE 85
[2021-06-28] MEDS: LABETALOL 100 MG TABLET 200 MG PO (08:40)
[2021-06-28] MEDS: ESCITALOPRAM 10 MG TABLET PO (08:40)
[2021-06-28] MEDS: PRENATAL VIT,CALC/IRON/FOLIC 1 TABLET 1 TAB PO (08:40)
[2021-06-28] MEDS: DOCUSATE 100 MG CAPSULE PO (08:40)
--- NOTE | 2021-06-28 12:19 | PM.OBDS.1 ---
Discharge Providers Provider Date of admission: 06/26/21 21:58 Discharge Date: 06/28/21 Primary care physician: Meenakshi Mccullough MD Consults: 06/28/21 15:26 Consult to Case Filler Routine Comment: Discharge provider: Meenakshi Mccullough MD Summary Hospital Course Date Patient Seen: 06/28/21 Time Patient Seen: 12:20 Diagnoses: Thirty-seven and 6 seventh weeks gestation Dichorionic/diamniotic twins Gestational hypertension Spontaneous vaginal delivery x2 Cervidil cervical ripening Induction of labor with Pitocin Epidural analgesia Artificial rupture of membranes x2 Hospital Course: Patient is a 25-year-old 3 para 3004 who presented on June 26, 2021 for Cervidil cervical ripening. She progressed to 3 cm from the Cervidil. She received an epidural for pain management in the morning of June 27, 2021. Pitocin augmentation was started. Artificial rupture membranes of baby A was performed. She progressed to complete dilation and had 2 spontaneous vaginal deliveries without complication. She had no lacerations. Her course was unremarkable and she is discharged home on day # 1. She does complain of some back pain. We discussed use of nonsteroidals and heat. Peripartum Data Infant Delivery Method: Natural Vaginal (x2) Laceration Description: None Episiotomy description: None Procedures: Cervidil cervical ripening Epidural analgesia Pitocin augmentation of labor Artificial rupture of membranes x2 Spontaneous vaginal delivery x2 complications: none [place] 1: Gender: Female Disposition of : home 2: Gender: Male Disposition of : home Status at Discharge Cognitive/behavioral status at discharge: oriented Functional status at discharge: independent ambulation Overall status at discharge: patient is progressing back to baseline Time Spent with Patient Time attestation: Total time spent providing and/or coordinating discharge services: Time spent: Less than 30 minutes Objective Labs Result Diagrams: 06/28/21 06:10 Labs: Laboratory Results - last 24 hr 06/28/21 06:10 Hgb 8.5 L Hct 27.7 L Exam Vital Signs (past 8 hours): - 06/28/21 08:40 Pulse Rate 85 Blood Pressure 141/67 H Narrative Exam Narrative: Generally: Patient lying in bed, no acute distress Fundus: Firm at U +1 Extremities: 1+ edema, negative Homans Discharge Plan Discharge Plan Patient Disposition: Home Provider Discharge Comment: Call with fever, chills, or bleeding vaginally more than a pad in an hour Call with headache or right upper quadrant pain Toradol or ibuprofen every 6 hours Tylenol 650 mg every 6 hours Stool softener as needed Continue vitamin Discharge orders & Medications Prescriptions: Continued prenat.vits,princess,[id number] Tablet 1 tab PO DAILY 0RF escitalopram oxalate [Lexapro] 10 mg tablet 10 mg PO DAILY Qty: 45 0RF hydroxyzine HCl 25 mg tablet 25 mg PO QID PRN (Reason: anxiety) Qty: 30 3RF labetalol 100 mg tablet 200 mg PO BID 0RF Discontinued metoclopramide HCl [Reglan] 10 mg tablet 10 mg PO Q8H PRN (Reason: nausea and vomiting) Qty: 30 2RF acyclovir 400 mg tablet 400 mg PO TID PRN (Reason: herpes) Qty: 60 3RF Rx Instructions: 7-10 days at a time until sores gone. Follow up/Referrals: Meenakshi Mccullough MD [Primary Care Provider] - 6 Weeks (I will have my office call on June 30, 2021 to schedule follow-up appointments) Diet/Activity/Treatments Diet: Regular Activity: Nothing in the vagina and till 6 week appointment Skin/Wound/Dressing Care Report to your healthcare provider any signs of infection, such as:: chills, fever, increased pain and unusual drainage Visit Report/Discharge Packet Instructions: DI for Labor and Delivery, Vaginal Discharge Data Primary Care Provider: Meenakshi Mccullough Attending Provider: Meenakshi Mccullough
[2021-06-28] MEDS: KETOROLAC 30 MG/ML VIAL IM (13:42)
[2021-06-28 17:09] VITALS: BP 141/67; PULSE 84; RESP 16; TEMP 36.7
== END 2021-06-28 19:52 | disposition home or self-care (01) | DRG 807 ==
PROVIDERS: Admitting Provider Obstetrics & Gynecology; PCP Obstetrics & Gynecology; Referring Provider Obstetrics & Gynecology; Visit Provider Obstetrics & Gynecology
DX: O30.043 Twin pregnancy, dichorionic/diamniotic, third trimester (principal); Z37.2 Twins, both liveborn; Z3A.38 38 weeks gestation of pregnancy; O99.892 Other specified diseases and conditions complicating childbirth; F31.9 Bipolar disorder, unspecified; F17.290 Nicotine dependence, other tobacco product, uncomplicated
CPT/HCPCS: 01967; 36415; 59050; 59200; 59400; 59409; 76815; 85014; 85018; 85025; 86850; 86900; 86901; G0378; G0379; J1885; J2405; J2590

== ENCOUNTER 2021-10-27 00:07 | Emergency (ER) | payer OTHER, SELFPAY ==
[2021-10-27 00:12] VITALS: BP 164/84; PULSE 88; RESP 22; TEMP 36.7; O2SAT 99
--- NOTE | 2021-10-27 00:19 | ED_ITS ---
HPI - Recheck/Abnormal Lab/Rx General Chief Complaint: Recheck/Abnormal Lab/Rx Stated Complaint: incision infected Time Seen by Provider: 10/27/21 00:14 Source: patient Mode of arrival: Ambulatory History of Present Illness HPI narrative: 26-year-old female who 2 weeks ago underwent a gastric sleeve procedure at an outside facility. She states that the incision around her umbilicus has been oozing fluid for the past couple days. She did have a follow-up at the end of last week with the surgeons they evaluated it however no antibiotics were prescribed. Since that time she states that it is now changed colors and has become foul-smelling. Related Data Home Medications Medication Instructions Recorded Confirmed prenat.vits,princess,[id number] 1 tab PO DAILY 12/11/20 08/11/21 labetalol 100 mg tablet 200 mg PO BID 06/07/21 08/11/21 Previous Rx's Medication Instructions Recorded hydroxyzine HCl 25 mg tablet 25 mg PO QID PRN anxiety #30 tabs 04/09/21 escitalopram oxalate 10 mg tablet 10 mg PO DAILY #90 tabs 08/12/21 (Lexapro) cephalexin 500 mg capsule 500 mg PO QID 7 days #28 caps 10/27/21 Allergies Allergy/AdvReac Type Severity Reaction Status Date / Time oxycodone AdvReac Verified 08/11/21 15:49 Review of Systems Constitutional Constitutional: Reports system reviewed and no additional complaints, except as documented Gastrointestinal Gastrointestinal: Reports system reviewed and no additional complaints, except as documented Integumentary/Breasts Skin/Breast: Reports system reviewed and no additional complaints, except as documented Patient History Medical History Anemia Bipolar affective disorder Heavy menstrual period Hemorrhage, immediate Herpes (~07/2020) Hip fracture, left History of prediabetes Hyperemesis gravidarum (~11/2020) Obesity Slipped epiphysis (spontaneous vaginal delivery) (~10/05/17) (spontaneous vaginal delivery) (~03/06/19) Thalassemia Twin (~11/20/20) Surgical History (Updated 12/11/20 @ 11:29 by Elva Peralta RN) Anesthesia History of hip surgery [place] teeth extracted (~2014) Family History (Updated 12/11/20 @ 10:45 by Elva Peralta RN) Grandmother Cancer Diabetes mellitus Hypertension Grandfather Cancer Skin cancer Family estrangement Father MVA (motor vehicle accident) Grandfather Family estrangement Grandmother Arthritis Mother Bipolar 1 disorder History of ETOH abuse Drug addiction in remission History of incarceration Brother No problems noted. Sister No problems noted. Social History marital status: number of children: 2 household members: spouse and children caregiver/support person: No pets and animals: No education level: high school occupational status: unemployed current occupational exposures/hazards: No geoffrey/religious: Mandaen special geoffrey needs: No Smoking Status: Former smoker Tobacco: How many years used: 2 Smokeless tobacco user: dissolvable tobacco quit status: quit date established second hand exposure: No alcohol intake: former substance use type: does not use Smoking Status: Former smoker Exam Initial Vital Signs Initial Vital Signs: Vital Signs Temperature 98.0 F 10/27/21 00:12 Pulse Rate 88 10/27/21 00:12 Respiratory Rate 22 10/27/21 00:12 Blood Pressure 164/84 H 10/27/21 00:12 Pulse Oximetry 99 10/27/21 00:12 Oxygen Delivery Method 10/27/21 00:12 GI Inspection: normal to inspection Palpation: soft and No tender Skin Other: The surgical sites on the abdomen are all very well healing without signs of infection except for the site around the area of the umbilicus. It does have a serosanguineous drainage to it. There is minimal surrounding erythema. Course Orders Ordered: Discontinued Medications Cephalexin HCl (Cephalexin 250 Mg Capsule) 500 mg PO NOW ONE Stop: 10/27/21 00:20 Last Admin: 10/27/21 00:23 Dose: 500 mg Documented By: PEDRO Vital Signs Vital signs: Vital Signs - 8 hr 10/27/21 00:12 Temperature 98.0 F Pulse Rate 88 Respiratory Rate 22 Blood Pressure 164/84 H Pulse Oximetry 99 Oxygen Delivery Method Room Air MDM - Recheck/Abnormal Lab/Rx MDM Narrative Medical decision making narrative: The surgical incision in the umbilicus does have an appearance of having an inf ection. I have low suspicion for an abscess. No indication for CT scanning however starting her on antibiotics is reasonable. She was given a 1st dose here in the emergency department in a prescription was sent to the pharmacy of her choice. She was also instructed to contact the operative surgeon about the events of today. She expressed understanding and agreement. Discharge Plan Departure Patient Disposition: Home Clinical Impression: Post op infection Activity Restrictions/Additional Instructions: Continue following all of the postoperative instructions given to you by the surgeons. Take the antibiotics as directed. Contact their clinic when they open later today to let them know that she had been started on antibiotics and return to the emergency department for any new or worsening symptoms. Prescriptions: New cephalexin 500 mg capsule 500 mg PO QID 7 Days Qty: 28 0RF No Action escitalopram oxalate [Lexapro] 10 mg tablet 10 mg PO DAILY Qty: 90 1RF prenat.vits,princess,[id number] Tablet 1 tab PO DAILY hydroxyzine HCl 25 mg tablet 25 mg PO QID PRN (Reason: anxiety) Qty: 30 3RF labetalol 100 mg tablet 200 mg PO BID Referrals: Meenakshi Mccullough MD [Primary Care Provider] - Visit Report Forms: Patient Portal/API
[2021-10-27] MEDS: cephALEXin 250 MG CAPSULE 500 MG PO (00:23)
== END 2021-10-27 00:25 | disposition home or self-care (01) ==
PROVIDERS: Emergency Provider Emergency Medicine; PCP Obstetrics & Gynecology
DX: T81.49XA Infection following a procedure, other surgical site, initial encounter (principal)
CPT/HCPCS: 99283

== ENCOUNTER → 2021-12-01 15:37 | Outpatient (CLI) | payer OTHER, SELFPAY ==
[2021-12-01 16:09] LABS: Add Manual Diff / Slide Review NO; Basophils Absolute Auto 0 /uL (0-100); Basophils Percent Auto 0.2 % (0-2); Eosinophils Absolute Auto 100 /uL (0-450); Eosinophils Percent Auto 0.8 % (2-4); Hematocrit 35.2 % (36-46); Hemoglobin 11.2 g/dL (12.0-16.0); Lymphocytes Absolute Auto 2600 /uL (1100-4500); Lymphocytes Percent Auto 32.7 % (25-40); Mean Corpuscular HGB Conc 31.9 % (30-36); Mean Corpuscular Hemoglobin 24.1 PG (26-34); Mean Corpuscular Volume 75.6 fL (80-100); Monocytes Absolute Auto 600 /uL (0-900); Monocytes Percent Auto 7.8 % (3-14); Neutrophils Absolute Auto 4600 /uL (1500-7000); Neutrophils Percent Auto 58.5 % (50-75); Platelet Count 339 X10^3/uL (150-400); Red Blood Cell Count 4.65 X10^6/uL (4.0-5.2); Red Cell Distribution Width 16.6 % (11.6-14.8); White Blood Cell Count 7.9 X10^3/uL (4.5-11.0)
[2021-12-01 16:57] LABS: HEMOLYSIS < 15 (0-50); Iron 12 ug/dL (37-170)
[2021-12-01 17:10] LABS: Percent Iron Saturation 3 % (15-50); Total Iron Binding Capacity 420 ug/dL (265-497); Transferrin 314 mg/dL (206-381)
[2021-12-01 17:50] LABS: Ferritin 5 ng/mL (6-137)
== END ==
PROVIDERS: PCP Family Medicine; Referring Provider Family Medicine; Visit Provider Family Medicine
DX: D50.9 Iron deficiency anemia, unspecified (principal)
CPT/HCPCS: 36415; 82728; 83540; 83550; 85025

== ENCOUNTER → 2023-04-15 14:43 | Outpatient (CLI) | payer OTHER, SELFPAY | PROVIDERS: Visit Provider Obstetrics & Gynecology | DX: N81.10 Cystocele, unspecified (principal) | CPT/HCPCS: 87086 ==